=== PATIENT | female | born 1935 | race Caucasian/White ===

== ENCOUNTER 2017-09-11 13:46 | Inpatient (IN) | payer OTHER ==
[~2017-09-11] VITALS: Ht 165.1 cm; Wt 83.5 kg
[2017-09-11] VITALS (9 sets, daily range): BP systolic 75–109; BP diastolic 45–96
--- NOTE | ~2017-09-11 | 2DMMODE ---
[facility] [place] [address] 2 D/M-MODE ECHOCARDIOGRAM Name: ELADIA ZULETA Room #: 243-P ADM IN M.R.#: [id number] Admission: 09/11/17 Attend Phys: Tsering Becerra MD Discharge: Date of : 39 Date of Service: 09/13/17 1042 Report #: [id number] THIS REPORT FOR: //name// APPROVED REPORT Study performed: 09/13/2017 09:12:09 EXAM: Comprehensive 2D, Doppler, and color-flow Echocardiogram Patient Location: ICU Room #: 243 Status: routine BSA: 2.02 HR: 86 bpm BP: 91/62 mmHg Other Information Study Quality: Adequate Indications Syncope Bacteremia, R^O SBE 2D Dimensions RVDd: 30.83 mm LVEF(%): 67.51 (>50%) IVSd: 8.46 (7-11mm) LVOT Diam: 18.78 (18-24mm) LVDd: 46.61 mm PWd: 8.46 (7-11mm) Ascending Ao: 29.05 (22-36mm) LVDs: 29.15 (25-40mm) Aortic Root: 26.64 mm IVC: 19.00 mm Harvey's LVEF: 67.51 % Volumes Left Atrial Volume (Systole) Single Plane 4CH: 75.50 mL Single Plane 2CH: 62.67 mL LA ESV Index: 37.00 mL/m2 Aortic Valve AoV Peak Moe.: 1.59 m/s AO Peak Gr.: 10.10 mmHg LVOT Max P.54 mmHg AO Mean Gr.: 4.80 mmHg LVOT Mean P.82 mmHg AO V2 Mean: 1.00 m/s LVOT Max V: 0.94 m/s AO V2 VTI: 27.75 cm LVOT Mean V: 0.63 m/s CHRISTEL (VTI): 1.93 cm2 LVOT V1 VTI: 19.36 cm CHRISTEL Vmax: 1.64 cm2 SV (LVOT): 53.60 mL [facility] [place] [address] 2 D/M-MODE ECHOCARDIOGRAM Name: RUTH ZULETAGY Room #: 243-P [facility] IN ..#: [id number] Admission: 09/11/17 Attend Phys: Tsering Becerra MD Discharge: Date of : 39 Date of Service: 09/13/17 1042 Report #: [id number] Mitral Valve IVRT: 83.04 ms Pulmonary Valve PV Peak Moe.: 1.05 m/s PV Peak Gr.: 4.39 mmHg Tricuspid Valve TR Peak Moe.: 3.22 m/s TR Peak Gr.: 41.36 mmHg PA Pressure: 46.00 mmHg Left Ventricle The left ventricle is normal size. There is normal left ventricular wall thickness. Left ventricular systolic function is hyperdynamic. LVEF is >70%. This study is not technically sufficient to allow evaluation of the LV diastolic function. Right Ventricle The right ventricle is normal size. The right ventricular systolic function is normal. Atria Left atrium is dilated. Right atrium is dilated. Aortic Valve The aortic valve is normal in structure. Aortic valve is calcified. Trace aortic regurgitation. There is no aortic valvular stenosis. Mitral Valve The mitral valve is normal in structure. Echodensities noted at the base of the papillary muscle clinical correlation recommended Mild mitral regurgitation. No evidence of mitral valve stenosis. Tricuspid Valve The tricuspid valve is normal in structure. There is mild tricuspid regurgitation. Estimated PAP 46 mmHg. There is moderate pulmonary hypertension. Pulmonic Valve The pulmonary valve is normal in structure. There is no pulmonic valvular regurgitation. [facility] [address] [place] [address] 2 D/M-MODE ECHOCARDIOGRAM Name: ELADIA ZULETA Room #: 243-P [facility] IN [facility]#: [id number] Admission: 09/11/17 Attend Phys: Tsering Becerra MD Discharge: Date of : 39 Date of Service: 09/13/17 1042 Report #: [id number] The aortic root is normal in size. IVC is normal in size and collapses >50% with inspiration. Pericardium There is no pericardial effusion. <Conclusion> The left ventricle is normal size. LVEF is >70%. Left atrium is dilated. Right atrium is dilated. The aortic valve is normal in structure. Aortic valve is calcified. Trace aortic regurgitation. The mitral valve is normal in structure. Echodensities noted at the base of the papillary muscle clinical correlation recommended Mild mitral regurgitation. The tricuspid valve is normal in structure. There is mild tricuspid regurgitation. Estimated PAP 46 mmHg. There is moderate pulmonary hypertension. There is no pericardial effusion. <ELECTRONICALLY SIGNED> By: Darion Herrera MD 09/13/17 1042 1042 [id number] Darion Herrera MD /INF
--- NOTE | ~2017-09-11 | HC ---
[facility] [place] [address] CONSULTATION Name: ELADIA ZULETA Room #: 243-P [facility] IN M.R.#: [id number] Admission: 09/11/17 Attend Phys: Tsering Becerra MD Discharge: 09/14/17 Date of : 39 Report #: [id number] THIS REPORT FOR: //name// CC: Tsering Becerra DATE OF SERVICE: 09/11/2017 NEPHROLOGY CONSULTATION REASON FOR CONSULTATION: End-stage renal disease, hypotension and sepsis. HISTORY OF PRESENT ILLNESS: This is a 81-year-old female who has end-stage renal disease. She has been a chronic hemodialysis patient for about 3 years. 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 I do not have any details of that presentation or history. She recently has been dialyzing at the [facility]. She went for dialysis today and upon original presentation, was doing okay. Blood pressures were running in the 160s systolic range. Dialysis was uneventful for nearly the first hour, but then, she became hypotensive and had difficulty breathing. Dialysis was stopped. She underwent a short course of CPR and resuscitation. She was eventually brought over here to the Emergency Room here at [facility]. She has required no further CPR. She is in atrial fib, which is a chronic problem. She has been very hypotensive, though. This includes blood pressures in the 70s and 80s systolic. Again, she remains in atrial fibrillation. She has not had fever with a temperature 97.7. I was called earlier this afternoon from the Emergency Room physician. He stated that she could get 500 or 1000 mL of IV fluids to help with her hypotension. At this point, she has received a total of 1500 mL of IV fluid and blood pressure is up to 95/42. The patient is actually awake, responds some. She is very hard to understand due to speech problems. She stated she felt very cold. She has numerous layers of blankets on top. Her temperature is 97.7. She states it had been cold for a couple of days and has not been eating very much. She is unaware of dyspnea or cough. She says her dialysis catheter on the left side has been in there for quite some time and does not know actually how long it has been in place. Blood cultures were drawn in the Emergency Room, although I do not see that they were drawn from the dialysis catheter. She has already received some Levaquin and is getting a dose of vancomycin at this point. White count on presentation 22.4. PAST MEDICAL HISTORY: Olga granulomatosis as noted above. She has chronic atrial fib. She has been on some chronic anticoagulation. She also has a history of previous congestive heart failure. She has some diabetes mellitus. MEDICATIONS: I do not have her active medication list. [address] [address] CONSULTATION Name: ELADIA ZULETA Room #: 243-P DIS IN M.R.#: [id number] Admission: 09/11/17 Attend Phys: Tsering Becerra MD Discharge: 09/14/17 Date of : 39 Report #: [id number] ALLERGIES: PENICILLIN AND MORPHINE. FAMILY HISTORY: Unavailable. SOCIAL HISTORY: The patient is single, usually lives in an apartment in [facility], although she had been staying in various care centers and most recently at [facility]. REVIEW OF SYSTEMS: States she has not eaten in about 3 days. Has had lack of appetite. Has mild nausea, no vomiting, no diarrhea. She is uncertain about the urine amount that she still makes. She usually has some lower extremity edema. Has some chronic dyspnea currently. No cough. PHYSICAL EXAMINATION: GENERAL: Acutely ill female seen in the Emergency Room. VITAL SIGNS: Most recent blood pressure 95/42, heart rate 93, oxygen saturation 91%. HEENT: Shows pupils are 3 mm and reactive. Sclerae nonicteric. Oral mucosa is dry. NECK: Supple. There is a left-sided internal jugular vein tunneled dialysis catheter in place. No purulence around the exit site. No erythema along the tunnel. CHEST: Shows a spot with very shallow respirations. HEART: Has distant heart tones, which are irregularly irregular and monitor confirms atrial fibrillation. ABDOMEN: Obese. Diminished bowel sounds are present. There is mild tenderness diffusely over the abdomen. No point tenderness, guarding or rebound. EXTREMITIES: Very cool to the touch. She has 2+ bilateral lower extremity edema below the knees. She has an old arteriovenous dialysis graft in the right upper arm that is nonfunctional. She has a left-sided tunneled internal jugular vein catheter present for dialysis access. LABORATORY DATA: Sodium 135, potassium 4.1, chloride 99, bicarb 21, BUN 17, creatinine 3.7, calcium 8.0, magnesium 1.9, AST 99, ALT 62, magnesium 1.9, alkaline phosphatase 190, total protein 4.3, albumin 1.9. Lactate 7.8 on first check, 8.2 on repeat. INR 1.4. White count 22.4 with a differential of 90 neutrophils, 7 bands, 1 lymph, 2 monocytes. Hemoglobin 10.6, hematocrit 32.4, platelets 203,000. ASSESSMENT: 1. Sepsis with leukocytosis, hypotension, and states a sensation of chills, although she has not had a documented fever. She came in very hypotensive. She responded somewhat to 1.5 liters of IV fluids. If she remains hypotensive, she will need some Levophed as I think we maxed out on the amount of fluid she can respond to reasonably. In looking at her, my biggest concern for source of infection at this point is her dialysis catheter, which is a tunneled left-sided [facility] [address] [place] [address] CONSULTATION Name: ELADIA ZULETA Room #: 243-P [facility] IN ..#: [id number] Admission: 09/11/17 Attend Phys: Tsering Becerra MD Discharge: 09/14/17 Date of : 39 Report #: [id number]. Unfortunately, cultures were drawn peripherally and not from the catheter and she has already received broad spectrum antibiotics. The antibiotics can be continued. Unfortunately, it may be very difficult to isolate the source of her infection at this time. 2. End-stage renal disease. We will see how she responds overnight, what her labs are in the morning. Labs are okay now, but she only received about an hour of dialysis, so we will see what she responds. 3. Chronic atrial fibrillation, remains that way at this point. 4. Type 2 diabetes mellitus. 5. History of Olga granulomatosis. PLAN: 1. We will give her no additional IV fluids at this time for concern of getting volume overloaded. 2. If she needs further treatment of hypotension, Levophed will be the choice. 3. Broad spectrum antibiotics including Levaquin and vancomycin. 4. Follow up on labs. 5. We will see how she responds to all this as to whether we need to get left-sided internal jugular vein line out. 6. Repeat labs and follow along the need for her next dialysis treatment. 7. Obtain additional records from [facility]. <ELECTRONICALLY SIGNED> By: Blu Prescott MD 09/14/17 1102 [id number] [id number] Deangelo Burton MD /nt
--- NOTE | ~2017-09-11 | EKG ---
[facility] [place] [address] ELECTROCARDIOGRAM REPORT Name: ELADIA ZULETA Room #: 170-7 ADM IN M.R.#: [id number] Admission: 09/11/17 Attend Phys: Tsering Becerra MD Discharge: Date of : 39 Report #: [id number] THIS REPORT FOR: //name// [facility] ED Test Date: 2017-09-11 Test Time: 13:56:14 Pat Name: ELADIA ZULETA Department: Room: Gender: F Cable Maker: MILDRED : 1935 Requested By: Hugo Morton Order Number: [id number] MD: Jermaine Trinh Measurements Intervals [place] Rate: 106 P: MS: QRS: 10 QRSD: 40 T: -88 QT: 448 QTc: 595 Interpretive Statements Atrial fibrillation Low voltage, extremity and precordial leads Prolonged QT interval Nonspecific ST and T wave abnormality No previous ECG available for comparison Electronically Signed On 09-11-2017 17:12:14 CDT by Jermaine Trinh [email or web address] <ELECTRONICALLY SIGNED> By: Jermaine Trinh MD, [facility] 09/11/17 1712 1356 [id number] Jermaine Trinh MD, [facility] /EPI
[2017-09-11 15:17] LABS: HEMATOCRIT 32.4 % (37.0-47.0); HEMOGLOBIN 10.6 gm/dL (12.0-15.0); MCH 28.7 pg (26.0-34.0); MCHC 32.6 g/dL (28.0-37.0); MCV 88.2 fL (80.0-100.0); PLATELET COUNT 203 thou/uL (150-400); RBC 3.68 mil/uL (4.20-5.00); RDW 21.6 % (10.5-14.5); WBC 22.4 thou/uL (4.0-11.0)
[2017-09-11 15:26] LABS: CREATININE 3.7 mg/dL (0.6-1.0); POTASSIUM 4.1 mmol/L (3.5-5.1)
[2017-09-11 15:33] LABS: APTT 42.5 Seconds (24.5-32.8); INR 1.4
[2017-09-11 15:34] LABS: ALBUMIN 1.9 g/dL (3.4-5.0); MAGNESIUM 1.9 mg/dL (1.8-2.4); TOTAL PROTEIN 4.3 g/dL (6.4-8.2); TROPONIN-I 0.06 ng/mL (<0.06)
[2017-09-11 15:44] LABS: ABSOLUTE NEUTROPHILS 21.7 thou/uL (1.4-8.2); ANISOCYTOSIS 2+; HYPOCHROMASIA 2+; POLYCHROMASIA OCCASIONAL
[2017-09-11] MEDS ORDERED: OXYCONTIN10 M1 PO (19:01)
[2017-09-11] MEDS ORDERED: COUMADIN 2.5MG2.5 M1 PO (19:02)
[2017-09-11] MEDS ORDERED: VITAMINC500 PO (19:02)
[2017-09-11] MEDS ORDERED: ZOLOFT50 MG PO (19:02)
[2017-09-11] MEDS ORDERED: HYDRALAZINE 2525 MG PO (19:03)
[2017-09-11] MEDS ORDERED: DUONEB 2.5-0.5 M3 ML INH (19:03)
[2017-09-11] MEDS ORDERED: VITAMIN B-12500 MCG PO (19:04)
[2017-09-11] MEDS ORDERED: COLACE100 MG PO (19:04)
[2017-09-11] MEDS ORDERED: FOLIC ACID1 MG PO (19:04)
[2017-09-12] VITALS (39 sets, daily range): BP systolic 50–130; BP diastolic 30–110
[2017-09-12 05:50] LABS: CALCIUM 7.5 mg/dL (8.5-10.1); CREATININE 3.7 mg/dL (0.6-1.0); POTASSIUM 3.8 mmol/L (3.5-5.1)
[2017-09-12 06:04] LABS: HEMATOCRIT 30.5 % (37.0-47.0); HEMOGLOBIN 9.9 gm/dL (12.0-15.0); MCH 28.4 pg (26.0-34.0); MCHC 32.4 g/dL (28.0-37.0); MCV 87.7 fL (80.0-100.0); RBC 3.48 mil/uL (4.20-5.00); RDW 21.5 % (10.5-14.5); WBC 23.3 thou/uL (4.0-11.0)
[2017-09-13] VITALS (88 sets, daily range): BP systolic 32–120; BP diastolic 19–87
[2017-09-13 05:47] LABS: HEMATOCRIT 26.4 % (37.0-47.0); HEMOGLOBIN 8.8 gm/dL (12.0-15.0); MCHC 33.4 g/dL (28.0-37.0); MCV 86.7 fL (80.0-100.0); PLATELET COUNT 158 thou/uL (150-400); RBC 3.04 mil/uL (4.20-5.00); RDW 21.3 % (10.5-14.5); WBC 17.4 thou/uL (4.0-11.0)
[2017-09-13 05:59] LABS: ALBUMIN 1.4 g/dL (3.4-5.0); CALCIUM 7.4 mg/dL (8.5-10.1); CREATININE 4.1 mg/dL (0.6-1.0); PHOSPHORUS 3.3 mg/dL (2.5-4.9); POTASSIUM 3.7 mmol/L (3.5-5.1)
[2017-09-13 08:06] LABS: ABSOLUTE NEUTROPHILS 13.9 thou/uL (1.4-8.2); ANISOCYTOSIS 2+; METAMYELOCYTES 2 %; POLYCHROMASIA OCCASIONAL
[2017-09-13 17:13] LABS: ALBUMIN 1.7 g/dL (3.4-5.0); CALCIUM 7.5 mg/dL (8.5-10.1); MAGNESIUM 1.9 mg/dL (1.8-2.4); PHOSPHORUS 3.3 mg/dL (2.5-4.9); POTASSIUM 4.2 mmol/L (3.5-5.1)
[2017-09-14] VITALS (8 sets, daily range): BP systolic 43–107; BP diastolic 20–72
== END 2017-09-14 02:43 | DRG 871 ==
LOC: ER 13:46 → EROBS 16:10 → ICU 16:10
PROVIDERS: Emergency Medicine; Internal Medicine; Internal Medicine Nephrology
PROC: 5A1D90Z Performance of Urinary Filtration, Continuous, Greater than 18 hours Per Day (ICD-10-PCS; principal; 2017-09-13)
PROC: 5A09357 Assistance with Respiratory Ventilation, Less than 24 Consecutive Hours, Continuous Positive Airway Pressure (ICD-10-PCS; 2017-09-14)
DX: A41.9 Sepsis, unspecified organism (principal); N18.6 End stage renal disease; M31.30 Wegener's granulomatosis without renal involvement; I95.9 Hypotension, unspecified; I50.9 Heart failure, unspecified; I48.2 Chronic atrial fibrillation; G89.29 Other chronic pain; M54.9 Dorsalgia, unspecified; E11.22 Type 2 diabetes mellitus with diabetic chronic kidney disease; F32.9 Major depressive disorder, single episode, unspecified; R65.20 Severe sepsis without septic shock; I46.9 Cardiac arrest, cause unspecified; Z85.118 Personal history of other malignant neoplasm of bronchus and lung; Z88.6 Allergy status to analgesic agent; Z88.0 Allergy status to penicillin; Z88.2 Allergy status to sulfonamides; Z79.01 Long term (current) use of anticoagulants; Z95.0 Presence of cardiac pacemaker
CPT/HCPCS: 10203; 27000; 32110